=== PATIENT | female | born 1955 | race Caucasian/White ===

== ENCOUNTER 2017-12-02 06:54 | Emergency (ER) | payer OTHER ==
[2017-12-02] MEDS ORDERED: IBUPROFEN 600 MG TAB PO ONE (07:37)
--- NOTE | 2017-12-02 07:38 | EDPHY ---
H & P Stated Complaint: Throbbing headache, woke up with it, recent travels Time Seen by Provider: 12/02/17 07:06 HPI/ROS: CHIEF COMPLAINT: Headache HISTORY OF PRESENT ILLNESS: 62-year-old female presents with a headache. She awoke this morning with a throbbing left-sided headache. Headache is moderate, 6/10 and persistent. No associated symptoms and no alleviating or aggravating factors. No pain medications taken. She became concerned about a possible stroke because her best friend had a stroke. REVIEW OF SYSTEMS: complete 10 point ROS reviewed and is negative except for the noted elements in the HPI - Personal History Current Tetanus Diphtheria and Acellular Pertussis (TDAP): Unsure - Medical/Surgical History Hx Asthma: No Hx Chronic Respiratory Disease: No Hx Diabetes: No Hx Cardiac Disease: No Hx Renal Disease: No Hx Cirrhosis: No Hx Alcoholism: No Hx HIV/AIDS: No Hx Splenectomy or Spleen Trauma: No Other PMH: Myofascial pain syndrome - Social History Smoking Status: Former smoker Alcohol Use: Sober Drug Use: None - Physical Exam Exam: General Appearance: Alert, pleasant Eyes: Pupils equal and round, no conjunctival pallor or injection ENT, Mouth: Mucous membranes moist Neck: Normal inspection Respiratory: Lungs are clear to auscultation Cardiovascular: Regular rate and rhythm Gastrointestinal: Abdomen is soft and nontender Neurological: Alert, oriented x3, cranial nerves II through XII intact, motor 5 /5, sensory intact to light touch, normal gait Skin: Warm and dry, no rash Extremities: Nontender, no pedal edema Psychiatric: Anxious Constitutional: Initial Vital Signs Temperature (C) 36.7 C 12/02/17 06:54 Heart Rate 84 12/02/17 06:54 Respiratory Rate 18 12/02/17 06:54 Blood Pressure 121/69 H 12/02/17 06:54 O2 Sat (%) 98 12/02/17 06:54 O2 Delivery Mode Room Air Allergies/Adverse Reactions: codeine Allergy (Verified 12/02/17 06:59) Medical Decision Making ED Course/Re-evaluation: This patient presents with a moderate headache and significant anxiety regarding a stroke. Neurologic exam is normal and I do not feel that neuro imaging is indicated. This is not the worst headache ever, not acute onset and she does not have a fever; no evidence of CVA, subarachnoid hemorrhage, meningitis or other worrisome etiology. Ibuprofen 600 mg orally given. Warning signs discussed. She will follow up with her primary care physician in the office. Differential Diagnosis: Headache including but not limited to subarachnoid hemorrhage, migraine headache , tension headache and infectious causes such as meningitis, pharyngitis and sinusitis. Departure - Departure Disposition: Home, Routine, Self-Care Clinical Impression: Headache Qualifiers: Headache type: tension-type Headache chronicity pattern: acute headache Intractability: not intractable Qualified Code(s): G44.209 - Tension-type headache, unspecified, not intractable Condition: Good Instructions: Tension Headache (ED) Additional Instructions: Ibuprofen 600 mg 3 times daily while the pain persists. Return for worsening symptoms or any concerns. Referrals: [facility] [Primary Care Provider] - 2-3 days, if not improved
[2017-12-02 07:46] VITALS: BP 131/75
== END 2017-12-02 07:46 | disposition home or self-care (01) ==
DX: G44.209 Tension-type headache, unspecified, not intractable (principal); Z87.891 Personal history of nicotine dependence